=== PATIENT | female | born 1965 | race Caucasian/White ===

== ENCOUNTER 2017-06-15 19:16 | Emergency (ER) | payer MEDICAID, OTHER ==
[~2017-06-15] VITALS: Ht 157.5 cm; Wt 68.0 kg
[2017-06-15 19:25] VITALS: BP 123/56
[2017-06-15] MEDS ORDERED: IBUPROFEN 600 MG TAB PO ONE (23:45)
== END 2017-06-16 00:24 | disposition home or self-care (01) ==
LOC: ER 19:23
DX: S96.911A Strain of unspecified muscle and tendon at ankle and foot level, right foot, initial encounter (principal); W18.39XA Other fall on same level, initial encounter; Y93.89 Activity, other specified; Y92.89 Other specified places as the place of occurrence of the external cause; Y99.8 Other external cause status
CPT/HCPCS: 73610

== ENCOUNTER 2017-06-28 17:22 | Emergency (ER) | payer MEDICAID ==
[~2017-06-28] VITALS: Ht 157.5 cm; Wt 73.5 kg
[2017-06-28 17:44] VITALS: BP 122/69
== END 2017-06-28 18:10 | disposition home or self-care (01) ==
LOC: ER 17:27
DX: L25.9 Unspecified contact dermatitis, unspecified cause (principal)

== ENCOUNTER 2017-08-01 11:29 | Emergency (ER) | payer MEDICAID ==
[~2017-08-01] VITALS: Ht 157.5 cm; Wt 78.9 kg
[2017-08-01 12:36] LABS: Albumin 3.7 g/dL (3.4-5.0); Alkaline Phosphatase 109 U/L (45-117); Anion Gap 10 (5-15); Aspartate Aminotransferase 15 U/L (15-37); BUN/Creatinine Ratio 20.5; Bilirubin, Total 0.2 mg/dL (0.2-1.0); Blood Urea Nitrogen 15 mg/dL (7-18); Calcium 8.9 mg/dL (8.5-10.1); Carbon Dioxide 22 mmol/L (21-32); Chloride 107 mmol/L (98-107); GFR African American 108 mL/min; GFR Non-African American 89 mL/min; Glucose 96 mg/dL (74-106); Potassium 4.1 mmol/L (3.5-5.1); Sodium 139 mmol/L (136-145); Total Protein 8.5 g/dL (6.4-8.2)
[2017-08-01 12:37] LABS: Basophils # (auto) 0 uL; Basophils % (auto) 0.2 % (0.0-2.0); Eosinophils # (auto) 0.1 uL; Eosinophils % (auto) 0.8 % (0.0-7.0); Lymphocytes # (auto) 2.4 uL; Lymphocytes % (auto) 20.6 % (10.0-50.0); Mean Corpuscular Hemoglobin 32.8 pg (28.0-32.0); Mean Corpuscular Hgb Conc. 34.1 g/dL (32.0-36.0); Mean Corpuscular Volume 96.1 fL (80.0-100.0); Mean Platelet Volume 7.5 fL (6.9-10.8); Monocytes # (auto) 0.7 uL; Neutrophils # (auto) 8.5 uL; Neutrophils % (auto) 72.4 % (37.0-80.0); Platelet Count (auto) 351 10^3/uL (140-450); Red Cell Distribution Width 14.3 % (11.8-14.3); White Blood Cell 11.8 10^3/uL (4.4-10.8)
[2017-08-01] MEDS ORDERED: KETOROLAC TROMETH 30 MG/ML 1ML VIAL IV ONE (13:15)
[2017-08-01] MEDS ORDERED: IOHEXOL 350 MG/ML 100ML IJ ONE ×2 (13:50→14:31)
[2017-08-01 16:35] VITALS: BP 113/66
== END 2017-08-01 16:49 | disposition home or self-care (01) ==
LOC: ER 11:29
DX: R07.89 Other chest pain (principal)
CPT/HCPCS: 36415; 71020; 71275; 80053; 83735; 84484; 85025; 85379; 93005; 94761; 96374; 99285; J1885; Q9967

== ENCOUNTER 2017-10-21 12:27 | Emergency (ER) | payer MEDICAID ==
[~2017-10-21] VITALS: Ht 157.5 cm; Wt 76.7 kg
[2017-10-21 13:21] VITALS: BP 130/77
[2017-10-21] MEDS ORDERED: KETOROLAC TROMETH 60MG/2ML VIAL IM ONE (13:30)
[2017-10-21] MEDS ORDERED: PROMETHAZINE HCL 25 MG/ML 1ML IM ONE (13:30)
== END 2017-10-21 14:08 | disposition home or self-care (01) ==
LOC: ER 12:27
DX: G43.909 Migraine, unspecified, not intractable, without status migrainosus (principal); R42 Dizziness and giddiness; R53.1 Weakness; Z98.51 Tubal ligation status
CPT/HCPCS: 96372; 99284; J1885; J2550

== ENCOUNTER 2018-03-06 13:32 | Emergency (ER) | payer MEDICAID ==
[~2018-03-06] VITALS: Ht 157.5 cm; Wt 74.8 kg
[2018-03-06 14:17] VITALS: BP 144/74
[2018-03-06] MEDS ORDERED: NALBUPHINE HCL 10 MG/1ml INJECTION IM ONE (14:45)
== END 2018-03-06 15:34 | disposition home or self-care (01) ==
LOC: ER 13:32
DX: S40.011A Contusion of right shoulder, initial encounter (principal); M54.2 Cervicalgia; Z98.51 Tubal ligation status; W19.XXXA Unspecified fall, initial encounter; Y93.89 Activity, other specified; Y99.8 Other external cause status; Y92.89 Other specified places as the place of occurrence of the external cause
CPT/HCPCS: 70450; 72125; 73000; 96372; 99284; J2300